=== PATIENT | female | born 1935 | race Caucasian/White ===

== ENCOUNTER → 2017-09-05 12:03 | Outpatient (CLI) | payer MEDICARE, SELFPAY ==
--- NOTE | 2017-09-05 12:12 | RAD_ITS ---
STUDY: X-RAY - CERVICAL SPINE REASON FOR EXAM: Female, 82 years old. Headaches. TECHNIQUE: 4 view(s) of the cervical spine were obtained. COMPARISON: None FINDINGS: Normal anterior atlantoaxial articulation. Normal odontoid process. Normal cervical lordosis. There is multi-level endplate spondylosis. There is multi-level degenerative disc disease with multilevel disc space narrowing. The soft tissue structures are unremarkable. RAD/Cerv Spine 2 or 3 Views IMPRESSION: Degenerative changes. Electronically Signed: Kaylah Landeros MD at 23:10 EDT Tel , Service support ,
== END ==
PROVIDERS: Family Provider Internal Medicine; PCP Internal Medicine; Visit Provider Internal Medicine
DX: M47.892 Other spondylosis, cervical region (principal); M50.30 Other cervical disc degeneration, unspecified cervical region; R51 Headache
CPT/HCPCS: 72040